=== PATIENT | male | born 1945 | race Caucasian/White ===

== ENCOUNTER → 2017-04-19 | Outpatient (CLI) | payer MEDICARE ==
--- NOTE | 2017-04-19 10:57 | RAD ---
INDICATION: Thyrotoxicosis COMPARISON: Report from October 2010. No images available for comparison. TECHNIQUE: Grayscale and color ultrasound images obtained of the thyroid. FINDINGS: Right Lobe: 41 x 18 x 16 MM Left Lobe: 42 x 15 x 11 mm. Multiple nodules are seen in the right lobe of the thyroid with the dominant nodule measuring up to approximately 1 cm. Multiple nodules seen in the left lobe of the thyroid with the dominant nodule measuring up to 13 x 11 mm. This nodule appears predominantly solid. IMPRESSION: 1. Multinodular thyroid is identified with the largest nodule within the left lobe which is predominantly solid. Continued follow-up could be obtained to ensure no growth.
== END | disposition home or self-care (01) ==
LOC: US 08:48
PROVIDERS: ATTEND Family Medicine
DX: E05.20 Thyrotoxicosis with toxic multinodular goiter without thyrotoxic crisis or storm (principal)
CPT/HCPCS: 76536

== ENCOUNTER → 2018-04-16 | Outpatient (CLI) | payer MEDICARE ==
--- NOTE | 2018-04-16 16:39 | RAD ---
INDICATION: Follow-up thyroid nodules. TECHNIQUE: Thyroid ultrasound was performed and compared to a study from April 19, 2017. FINDINGS: Right thyroid lobe measures 4.0 x 1.2 x 1.5 cm and the left 3.5 x 1.8 x 2.0 cm. The isthmus measures 6 mm. Superior right thyroid nodule measures 14 x 6 x 9 mm. This is slightly larger than prior study, maximum measurement 10 mm on prior. This is predominantly hypoechoic, mixed solid and cystic, has a few potential microcalcifications, it is wider than tall, and is well-defined. Other smaller nodules noted previously inferiorly in the right thyroid lobe are less apparent on the current study. Nodule to the right at the level of the isthmus measuring 8 mm is noted, hypoechoic, wider than tall, without definite calcifications, and well-defined. Nodule inferiorly in the left thyroid lobe measures 6 mm, stable. Other nodules noted or superiorly in the left thyroid lobe on prior study are less apparent on the current exam. IMPRESSION: Bilateral thyroid nodules. One nodule superiorly on the right appears slightly increased in size although still only 14 mm in greatest dimension. Several of the other nodules noted previously are less apparent on the current exam. TI-RADS 4. Continue annual follow-up given size less than 15 mm. Electronically signed by: Jh James MD (04/16/2018 4:35 PM) [facility]
== END | disposition home or self-care (01) ==
LOC: US 09:36
PROVIDERS: ATTEND Nurse Practitioner Family
DX: E04.2 Nontoxic multinodular goiter (principal)
CPT/HCPCS: 76536

== ENCOUNTER → 2019-12-03 | Outpatient (CLI) | payer MEDICARE ==
[2018-06-09 20:24] VITALS: BP 144/85
--- NOTE | 2019-12-03 11:03 | RAD ---
Examination: VENOUS LOWER EXTREMITY RIGHT History: Pain involving right lower extremity. History of travel. Comparison/Correlation: None FINDINGS: Right lower extremity duplex venous ultrasound exam was performed. Grayscale, color Doppler, and spectral Doppler imaging was performed. Compression and augmentation was performed. The right common femoral vein, superficial femoral vein, popliteal vein, and saphenofemoral junction are normal with no evidence of deep venous thrombus. Normal compressibility and augmentation is evident. Visualized right calf veins are unremarkable. Left common femoral vein is unremarkable. IMPRESSION: Normal right lower extremity duplex ultrasound exam. No evidence of deep venous thrombus involving the right lower extremity. Electronically signed by: Joon Lala MD (12/03/2019 11:00 AM) [id number]
== END | disposition home or self-care (01) ==
LOC: US 10:13
PROVIDERS: ATTEND Family Medicine
DX: M79.604 Pain in right leg (principal)
CPT/HCPCS: 93971

== ENCOUNTER 2020-05-02 15:59 | Emergency (ER) | payer MEDICARE ==
[~2020-05-02] VITALS: Ht 188 cm; Wt 84.0 kg
[2020-05-02] MEDS ORDERED: IV NORMAL SALINE 1,000ML 1,000 ML IV SCH (16:16)
--- NOTE | 2020-05-02 16:24 | PHYS DOC ---
Past History Past Medical History: No Pertinent History Past Surgical History: No Surgical History Alcohol Use: None Drug Use: None Adult General Chief Complaint Chief Complaint: INSECT BITE [facility] HPI Patient is a 74-year-old male with no pertinent medical history presents for bee sting. Patient was out mowing yard when he suffered a bee sting to his ventral portion of right hand in between second and third knuckle and a subsequent bee sting to his left ear. Patient started developing localized allergic reactions with progressive hives prompting him to take 50 mg of Benadryl and immediately report to [facility] for further evaluation medical management. Patient has a history of bee stings that have caused allergic reactions in the past, denies having history of anaphylaxis or intubation. Review of Systems Review of Systems Positive for localized pain, mild edema, and pruritus Negative for headache, lightheadedness, shortness of breath, chest pain, abdominal pain, urinary symptoms, feelings of potential airway compromise Fourteen body systems of review of systems have been reviewed. See HPI for pertinent positives and negative responses, other camarena all other systems are ne gative, non-pertinent or non-contributory Allergies Allergies Allergies Coded Allergies Type Severity Reaction Last Updated Verified bee venom protein (honey bee) Allergy Intermediate 06/09/18 Yes Physical Exam Physical Exam VITAL SIGNS: Within normal limits. GENERAL: No acute distress, non-toxic appearance. HEAD: Normal with no signs of head trauma. EYES: PERRLA, EOMI, conjunctiva normal, no discharge. EARS: Hearing grossly intact. Posterior tip of the left ear showing classic localized inflammatory reaction status post bee sting, no retained bodies, no streaking NOSE: Normal. THROAT: Oropharynx is normal. NECK: Normal range of motion, no tenderness, supple, no lymphadenopathy, No adenopathy, no JVD. CHEST: Clear breath sounds bilaterally. No wheezes, rales, or rhonchi. CARDIAC: Regular rate and rhythm. S1 and S2, without murmurs, gallops, or rubs. VASCULAR: No Edema. Peripheral pulses normal and equal in all extremities. ABDOMEN: Normal and soft with no tenderness, no masses or pulsatile masses. GASTROINTESTINAL: Bowel sounds normal GENITOURINARY: Normal, No tenderness LYMPATHTIC: No lymphadenopathy noted. MUSCULOSKELETAL: Good range of motion of all major joints. Extremities without clubbing, cyanosis or edema. Localized inflammatory reaction of posterior right hand in between second and third knuckle space with mild inflammation, erythema, minimal edema, no streaking NEUROLOGICAL: Alert and oriented x 3. No focal sensory or strength deficits. Speech normal. Follows commands appropriately. PSYCHIATRIC: Normal Affect, judgement and mood. SKIN: Normal appearance or lesions. Mild hives present on bilateral upper extremities EKG EKG [] Radiology/Procedures Radiology/Procedures [] Course & Med Decision Making Course & Med Decision Making Patient seen and examined by myself on immediate ED arrival Vital signs stable, comprehensive history and physical exam non-concerning for emergent pathology or airway compromise, no anaphylaxis Given classical findings of allergic reaction status post bee sting, IV access was obtained, IV fluid, Solu-Medrol, and Pepcid was administered given that patient pretreated with 50 mg p.o. Benadryl prior to arrival Patient observed in ED with near total improvement in symptoms Seeing as initial bee sting was greater than 2 hours ago, likelihood of anaphylaxis occurring is extremely low at this time Joint decision to discharge home with close PCP follow-up as needed Strict return precautions discussed with good understanding, all questions and concerns addressed prior to ED departure Mishel Disclaimer Mishel Disclaimer This electronic medical record was generated, in whole or in part, using a voice recognition dictation system. Departure Departure: Impression: Primary Impression: Allergic reaction to bee sting Disposition: HOME/RESIDENCE PRIOR TO ADM Condition: IMPROVED Referrals: MARIANGEL BARKER MD (PCP) Patient Instructions: Bee, Wasp, or Hornet Sting Additional Instructions: You have been evaluated in the Emergency Department today for your allergic reaction. You have been given medications including steroids, normal saline and Pepcid to control your swelling. You have been observed in the Emergency Department and it appears that your symptoms will not return. Please follow up with your primary care physician as needed in upcoming 2 to 6 days following your ED visit Return to the Emergency Department if you experience difficulty breathing or swallowing, recurrent vomiting, rashes, lip/mouth/tongue swelling, persistent fevers or for any other concerning symptoms. Justification of Admission: Justification of Admission: Justification of Admission Dx: N/A MIKE JUSTICE DO May 02, 2020 16:24
[2020-05-02] MEDS ORDERED: methylPREDNISolone SOD SUCC PF 125 MG/2 ML VIAL. IV ONE (16:30)
[2020-05-02] MEDS ORDERED: FAMOTIDINE 20 MG/2 ML VIAL IVP ONE (16:30)
[2020-05-02] MEDS ORDERED: methylPREDNISolone SOD SUCC PF 125 MG/2 ML VIAL. ONE (16:31)
[2020-05-02 17:29] VITALS: BP 155/74
== END 2020-05-02 17:31 | disposition home or self-care (01) ==
LOC: ER 15:59
DX: T63.441A Toxic effect of venom of bees, accidental (unintentional), initial encounter (principal); L29.9 Pruritus, unspecified; Z91.030 Bee allergy status; Y92.89 Other specified places as the place of occurrence of the external cause
CPT/HCPCS: 99281